=== PATIENT | female | born 1975 | race Caucasian/White ===

== ENCOUNTER 2024-02-22 15:20 | Emergency (ER) | payer OTHER, SELFPAY ==
[2024-02-22 15:23] VITALS: BP 157/92
--- NOTE | 2024-02-22 17:04 | ED.MUSCINJ ---
HPI-Injury
General
Chief Complaint: Musculo-Skeletal Complaint
Source: patient
Exam Limitations: none
Time Seen by Provider: 02/22/24 15:38
History of Present Illness-Injury
Is this injury a work related problem?: No
Is pt an associate of [facility],[place]?: No
Initial Injury comments:
Patient states she was running across street and tipped and fell. Denies hitting her head. COmplains of pain to bilateral forearm, L>R. Incident occurred this AM
Past History
Past History
ED Past Medical History: None
ED Past Surgical History: None
Review of Systems
Review of Systems
Allergies reviewed?: Yes
All Other Systems: ROS reviewed and negative except as documented in HPI and ROS
Constitutional: Reports no symptoms
Musculoskeletal: Reports joint pain (Bilateral forearm pain L>R)
Skin: Reports no symptoms
Neurological: Reports no symptoms
Psychiatric: Reports no symptoms
Musculoskeletal Injury Exam
Musculoskeletal Injury Exam
Right forearm:
Pain with Movement?: Mild
Tender to palpation?: Mild
Soft tissue swelling?: None
External deformity and angulation?: None
Joint effusion?: None
Contusion?: Moderate
Hematoma-local bleeding into tissue?: None
Strain- Sprain- Tear (Connective tissue injury)?: None
Crepitus with movement?: No
Joint instability?: No
Malalignment/deformity?: No
Range of motion: Full
Distal skin color and temperature: normal-warm & good color
Capillary Refill: normal
Normal distal neurovascular exam?: Yes
Peripheral Pulses: radial (left): 3+ and radial (right): 3+
Left Forearm:
Pain with Movement?: Moderate
Tender to palpation?: Moderate
Soft tissue swelling?: None
External deformity and angulation?: None
Joint effusion?: None
Contusion?: Moderate
Hematoma-local bleeding into tissue?: None
Crepitus with movement?: No
Joint instability?: No
Malalignment/deformity?: No
Range of motion: Limited
Distal skin color and temperature: normal-warm & good color
Capillary Refill: normal
Normal distal neurovascular exam?: Yes
Phy Exam
General Physical Exam
General Presentation: well appearing and no apparent distress
General age: appears stated age
General Skin: warm and dry
General Habitus: normal
General Mental: alert
General Hydration: appears well hydrated
Musculoskeletal Exam
Musculoskeletal Exam: neuro vasc intact
Skin Exam
Skin Exam: normal color, warm/dry and no rash
Psychiatric Exam
Psychiatric Exam: normal mood/affect
Injury Course
Orders/Labs/Results
Orders:
Orders
02/22/24 15:25
Wrist, Left 3 Views CR [CR Wrist - Left Min 3 Views] Urgent
Comment:
Reason For Exam: pain
02/22/24 15:26
Forearm, Left 2 View [CR Forearm - Left 2 View] Urgent
Comment:
Reason For Exam: pain
Hand, Left 3 View [CR Hand - Left Min 3 Views] Urgent
Comment:
Reason For Exam: pain
02/22/24 15:27
Forearm, Right 2 View [CR Forearm - Right 2 View] Urgent
Comment:
Reason For Exam: pain
Wrist, Right 3 Views [CR Wrist - Right Min 3 Views] Urgent
Comment:
Reason For Exam: pain
*Radiology
Radiology exam reviewed: radiology read reviewed
*Pulse Oximetry
Patient hypoxic: no
*Critical Care Note
Total Time (30-74mins, 75-104mins- exclusive of procedures): Not Applicable
ED Attending Note
-
Portions of this chart may have been created with voice recognition software.� Occasional wrong word or��sound alike� substitutions may have occurred due to the inherent limitations of voice recognition software.
Discharge Plan
Departure
Patient Disposition: Home (Routine Discharge)
Date of Disposition: 02/22/24
Time of Disposition: 17:01
Patient with high blood pressure during this ER visit?: No
Condition: Good
Covid-19: Not Applicable
Discharge Problem:
Contusion of upper extremity, Sprain of arm
Instructions: Contusion (DC), Sprain (DC), Ibuprofen, Using Cold for Pain
Prescriptions:
No Action
medroxyprogesterone 10 MG tablet
10 mg PO DAILY Qty: 21 0RF
Referrals:
Mason Luther MD [Active] - (Follow up if your symptoms do not improve over the next week.)
Interventions
Interventions:
*Risk Screen - Suicide Last Done: 02/22/24 15:23
*Neglect/Abuse Screening Last Done: 02/22/24 15:23
*Nursing Disposition Last Done: 02/22/24 17:21
ED-Musculoskeletal Assessment Last Done: 02/22/24 15:36
Discharge Date and Time
Discharge Date/Time: 02/22/24 17:21
Print Language: TURKMEN
--- NOTE | 2024-02-22 17:16 | EDRN ---
Pt left after [employer] P[employer] evaluated her. Left prior to d/c instructions and registration.
== END 2024-02-22 17:21 | disposition home or self-care (01) ==
LOC: EMR 15:20
PROVIDERS: EMERGENCY PHYSICIAN Emergency Medicine
DX: S40.021A Contusion of right upper arm, initial encounter (principal); S63.501A Unspecified sprain of right wrist, initial encounter; W19.XXXA Unspecified fall, initial encounter; Y93.02 Activity, running
CPT/HCPCS: 99283; 73090; 73110; 73130